=== PATIENT | female | born 1970 | race Caucasian/White ===

== ENCOUNTER 2022-08-02 09:12 | Outpatient (CLI) | payer OTHER, SELFPAY | END 2022-08-02 09:13 | disposition home or self-care (01) | PROVIDERS: PCP Family Medicine; Visit Provider Surgery | DX: Z12.11 Encounter for screening for malignant neoplasm of colon (principal); K63.5 Polyp of colon; K57.30 Diverticulosis of large intestine without perforation or abscess without bleeding; K64.8 Other hemorrhoids; Z86.010 Personal history of colon polyps | CPT/HCPCS: 45385; 88305; 99153; J2250; J2405; J3010 ==

== ENCOUNTER 2023-03-15 08:49 | Outpatient (CLI) | payer BC, SELFPAY | END 2023-03-15 08:50 | disposition home or self-care (01) | PROVIDERS: PCP Family Medicine; Visit Provider Family Medicine | DX: D64.9 Anemia, unspecified (principal); R79.89 Other specified abnormal findings of blood chemistry; E78.1 Pure hyperglyceridemia; R59.1 Generalized enlarged lymph nodes | CPT/HCPCS: 80076; 82728; 83540 ==

== ENCOUNTER 2023-10-27 15:52 | Outpatient (CLI) | payer BC, SELFPAY ==
--- OUTSIDE RECORDS SUMMARY | 2023-10-27 15:57 | XMS_ITS | Encounter Summary ---
Author Organization [facility] Address [address] [address] Care Team Providers Care Clinical Business Analyst Name Role Phone Mellissa Simms MD Primary Care Provider [phone]- [phone] Encounter Details Date Type Department Care Team (Late st Contact Info) Description 01/04/2022 Research Encounter [facility] [address] [place] [address] Maynor Sherman MD [address] [place] [id number] Social History Tobacco Use Types Packs/Day Years Used Date Smoking Tobacco: Never Smokeless Tobacco: Never Alcohol Use Standard Drinks/Week Comments No 0 (1 standard drink = 0.6 oz pur e alcohol) Sex and Gender Information Value Date Recorded Sex Assigned at Not on file Gender Identity Not on file Sexual Orientation Not on file documented as of this encounter Progress Notes * Chase Harrison MD - 01/04/2022 3:36 PM CDT Today patient was electronically consented to the IT R study. Electronic consent form was reviewed and the subject expressed understanding of all information. All questions were answered. Patientelectronically signed the consent form. Patient was allowed to save or print a pdf copy of the completed signed consent form. Chase Harrison 01/04/2022 documented in this encounter Plan of Treatment Upcoming Encounters Date Type Department Care Team (Late st Contact Info) Description 11/18/2023 8:00 AM CDT Telemedicine [facility] [address], [address] [place], [place] [id number] Katelyn Harmon MD [address] [place], [place] [address] documented as of this encounter Visit Diagnoses Not on filedocumented in this encounter Care Teams Clinical Business Analyst Relationship Specialty Start Date End Date Mellissa Simms MD [address] [place] [phone] PCP - General 01/08/14 documented as of this encounter"
--- OUTSIDE RECORDS SUMMARY | 2023-10-27 15:57 | XMS_ITS | Data Portability ---
Author Organization [place] - [facility], [employer] Address [address] [facility] [place] [address] Assessment Encounter Date Assessment Date Assessment LastModified by Organization Details LastModified Time 08/18/2022 08/18/2022 We discussed new orthotics, suggested she bring hers in for modifications. Discussed trial of Subiomed at that time. She is trying to increase her walking and pain is increasing with the activity. We spent 20 minutes of face to face consultation time with the patient today. Discussing treatment. [email or web address] Not available 08/22/2022 11:34:42 08/19/2022 08/19/2022 Patient presents for orthotics check. Discussed instructions and any additional orders with patient. We made adjustments to orthotics and applied some heel lifts b/l. Follow 1 week. We spent 20 minutes of face to face consultation time with the patient today. Discussing treatment. Gait analysis and walk tests today. [email or web address] Not available 08/19/2022 20:58:19 Plan of Treatment Reminders Order Date Submit Date Provider Last Modified By Organization Details Last Modified Time Details Appointments None record ed. Lab None record ed. Referral None record ed. Procedures None record ed. Surgeries None record ed. Imaging None record ed. Medication Orders None record ed. Patient TargetsNo targets recorded. Patient InstructionsNo instructions recorded. Reason for Referral None Reported. Problems Name Status Onset Date Resolution Date Notes Provider Name and Address Organization Details Recorded Time Onychomycosis of toenails Active 2021 Onychomycosis of toenails; Original Code: 8964119316 Scott ginal Codesystem: SNOMED CT Classificat ion: Medical Confir mation Status: Confirmed Not Available [facility] 09:03:19 Acquired hallux valgus Active 2020 Acquired hallux valgus; Original Code: 969969845 Orig inal Codesystem: SNOMED CT Classificat ion: Medical Confir mation Status: Confirmed Not Available [facility] 3 09:03:19 Ganglion of ankle and foot Active 2020 Ganglion of ankle and foot; Original Code: 7149584168 Scott ginal Codesystem: SNOMED CT Classificat ion: Medical Confir mation Status: Confirmed Not Available [facility] 3 09:03:19 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 Medical Equipment None Reported. Medications Name Sig Start Date Stop Date Status Note LastModified by Organization Details LastModified Time topiramate 25 mg tablet TAKE 1 TABLET BY MOUTH TWICE A DAY active Not Available Not Available No t Available phentermine 37.5 mg tablet TAKE 0.5 TABLETS (18.75 MG) BY MOUTH DAILY BEFORE BREAKFAST. active Not Available Not Available N ot Available acetaminophe n 500 mg tablet TAKE 2 TABLETS BY MOUTH EVERY 8 HOURS active Not Available Not Available No t Available oxycodone-ac etaminophen 5 mg-325 mg tablet TAKE 1 TABLET BY MOUTH EVERY 4 HOURS IF NEEDED FOR PAIN. MAX ACETAMINOPH EN DOSE: 4000MG IN 24 HRS. active Not Available Not Available No t Available ferrous sulfate 325 mg (65 mg iron) tablet TAKE 1 TABLET BY MOUTH EVERY DAY active Not Available Not Available No t Available ibuprofen 600 mg tablet TAKE 1 TABLET (600 MG) BY MOUTH EVERY 8 HOURS. active Not Available Not Available No t Available oxycodone 5 mg tablet TAKE 1-2 TABLETS (5-10 MG) BY MOUTH EVERY 4 HOURS NEEDED. active Not Available Not Available No t Available GaviLyte-G 236 gram-22.74 gram-6.74 gram-5.86 gram oral solution 240 ML ORALLY EVERY 10 MINUTES FOLLOW COLONOSCOPY PREP INSTRUCTION S GIVEN IN CLINIC. active Not Available Not Available No t Available Vitals None Recorded Social History None recorded. Functional Status None recorded. Mental Status None recorded. Family History Nothing Reported. Medical History No medical history recorded. Gynecological HistoryNo gynecological history recorded. Obstetrics History GPAL:G 0 P 0 0 0 0 Past Encounters Encounter ID Performer Location Encounter Start Date Encounter Closed Date Diagnosis/Indication Diagnosis SNOMED-CT Code [id number] Joshua Amos DPM [facility] [address] [place] [address] 08/18/2022 16:31:36 08/23/2022 10:37:43 Bilateral acquired hallux limitus of great toes [id number] 02 Onychomycosis [id number] Joshua Amos DPM [facility] [address] [place] [address] 08/19/2022 16:02:44 08/20/2022 12:27:12 Pain in right foot [id number] Pain in left foot 658105 [id number] Pain in ri ght hip joint [id number] Health Concerns Section Related Observation LastModified by Organization Detai ls LastModified Time None Recorded Concern Status LastModified by Organization Details LastModified Time None Recorded Advance Directives Directive None Recorded Payers Encounter Date Sequence Insurance Name Policy Number Policy Nazario Covered Member ID Nazario Member ID Guarantor Name 08/18/2022 1 [employer]) Velia Barton [id number] Velia Barton 08/19/2022 1 [employer]) Velia Barton [id number] Velia Barton Notes Date Note Type Note Provider Name and Address Organization Details Recorded Time 08/18/2022 text/html HPI Notes: Pt. presents without orthotics today for complaint of hip pain right, Problems with great toenails b/l. She has orthotics. Joshua Amos DPM [address] [place], [address], [facility] 08/22/2022 11:34:54 08/19/2022 text/html HPI Notes: This established Pt. presents for orthotic check after initiating orthotic use for heel and arch pain consistent with plantar fascititis and excess pronation. Joshua Amos DPM [address] [place], [address], [facility] 08/19/2022 20:58:26 OBGyn Episode No OBEpisode recorded.
--- OUTSIDE RECORDS SUMMARY | 2023-10-27 15:57 | XMS_ITS | Encounter Summary ---
Author Organization [facility] Address [address] [place] [address] Care Team Providers Care Jumbo Operator Name Role Phone None Reported, Pcp Primary Care Provider Unavail able Encounter Details Date Type Department Care Team (Late st Contact Info) Description 12/14/2016 Historical Ophthalmology [facility] Guido Quezada Jr., M.D. [address] [place] [address] Social History Tobacco Use Types Packs/Day Years Used Date Smoking Tobacco: Never Assessed Sex and Gender Information Value Date Recorded Sex Assigned at Not on file Gender Identity Not on file Sexual Orientation Not on file documented as of this encounter Progress Notes * Guido Quezada M.D. - 12/14/2016 3:27 PM CDT Eye General CHIEF COMPLAINT Eyelid Irritation/ Bump HISTORY OF PRESENT ILLNESS Pt states has eyelid bump on left eye for about 2-3 years. Presents today with irritation and discomfort, states bump is bigger than before. Bothering pt. IMPRESSION / REPORT / PLAN #1 Sebaceous Cyst Removed with 25 g Maxitrol Ointment BID 4 days DIAGNOSIS #1 Sebaceous Cyst CDM Reports - EYEGEN Id: [id number] Status: Fnl documented in this encounter Plan of Treatment Not on file documented as of this encounter Visit Diagnoses Not on filedocumented in this encounter Additional Health Concerns Infection Onset Date Last Indicated Resolved Time COVID19 Pending 12/28/2019 12/28/2019 12/29/2019 5 :17 AM CDT documented as of this encounter Care Teams Jumbo Operator Relationship Specialty Start Date End Date None Reported, Pcp PCP - General Family Medicine 05/22/23 documented as of this encounter
--- OUTSIDE RECORDS SUMMARY | 2023-10-27 15:57 | XMS_ITS | Clinical Summary ---
Author Organization [facility] Address [address] [place] [address] Care Team Providers Care Derrick Operator Name Role Phone None Reported, Pcp Primary Care Provider Unavail able Source Comments Patient records contain information from all sites at [facility]. For routine questions regarding patient records, call [phone] during business hours, M-F 8:00 AM - 5:00 PM Central Time. Record requests for emergency care only can be directed to [phone] at any time.[facility] Allergies No known active allergies Medications Medication Sig Dispensed Refills Start Date End Date Status calcium citrate/vitamin D3 (CALCIUM CITRATE + D ORAL) Take by mouth. Active iron 18 mg tablet Take 25 mg by mouth. 08/08/2013 Active cholecalciferol (VITAMIN D3) 1,000 Unit capsule Take 1 capsule by mouth. Active cyanocobalamin (VITAMIN B12) 1,[address] under the tongue. Active benzonatate (TESSALON) 200 mg capsuleIndications:Co ugh Unspecified Type Take 1 capsule (200 mg total) by mouth 3 (three) times a day as needed for cough. 42 capsule 05/22/2023 Active codeine-guaiFENesin (ROBITUSSIN-AC) 10-100 mg/5 mL liquidIndications:Cou gh Unspecified Type Take 5-10 mL by mouth every 6 (six) hours as needed for cough. 240 mL 05/22/2023 Active Active Problems No known active problems Immunizations Name Administration Dates Next Due Influenza TIV (IM) 01/29/2005 Influenza, Injectable, Mdck, Preservative Free, Quadrivalent 12/16/2020 Tdap 07/26/2007 influenza vaccine quad (FLUZONE/FLUARIX) (6 months and older)(PF) 03/15/2023,12/18/2021,02/05/2020,2018 Social History Tobacco Use Types Packs/Day Years Used Date Smoking Tobacco: Never Smokeless Tobacco: Never Tobacco Cessation:Counseling Given: No Alcohol Use Standard Drinks/Week Comments No 0 (1 standard drink = 0.6 oz pur e alcohol) Nutrition Answer Date Recorded Nutrition: EVOO Fat Source Unknown 06/23 Nutrition: Servings of Fruits/Vegetables per Day Not on file 06/23/2020 Dental Answer Date Recorded Dental: Regular Dentist Unknown 06/25/19 21 Sex and Gender Information Value Date Recorded Sex Assigned at Not on file Gender Identity Not on file Sexual Orientation Not on file Last Filed Vital Signs Vital Sign Reading Time Taken Comments Blood Pressure 102/65 05/22/2023 9:50 AM ELECTROTYPER Pulse 83 05/22/2023 9:50 AM ELECTROTYPER Temperature 36.4 ??C (97.6 ??F) 05/22/2023 9:50 AM CS T Respiratory Rate 16 05/22/2023 9:50 AM ELECTROTYPER Oxygen Saturation 98% 05/22/2023 9:50 AM ELECTROTYPER Inhaled Oxygen Concentration - - Weight 66 kg (145 lb 8.1 oz) 05/22/2023 9:50 AM ELECTROTYPER Height - - Body Mass Index - - Plan of Treatment Health Maintenance Due Date Last Done Comments CT Colonography 1968 Cervical Cancer Screening 1968 Cologuard 1968 FIT 1968 HIV Screening 1968 Hepatitis C Screening 1968 Lipid (Cholesterol) Screening 1968 Hepatitis B Vaccines (1 of 3 - 19+ 3-dose series) 1987 DTaP,Tdap,and Td Vaccines (2 - Td or Tdap) 07/25/2017 07/26/2007 Zoster Vaccines (1 of 2) 2018 COVID-19 Vaccine ( - season) 2022 03/20/2021, 08/19/2020, 07/22/2020 Depression Screening (Annual PHQ-2) 04/18/2023 Mammogram 05/03/2023 05/03/2022, 01/16, 12/10/2019, Additional history exists Influenza Vaccine (#1) 2024 3, 12/18/2021, 12/16/2020, Additional history exists Fasting Glucose for Diabetes Screening 10/08/2024 10/08/2021 Colonoscopy 04/17/2032 04/17/2022 Colorectal Cancer Screening 04/17/2032 Pneumococcal vaccine (0-64 years) Aged Out No longer eligible based on patient's age to complete this topic Procedures Procedure Name Priority Date/Time Associated Diagnosis Comments BI BREAST SCREENING BILATERAL WITH TOMOSYNTHESIS RAD - Routine (most inpatients and all outpatients) 05/03/2022 12:33 PM ELECTROTYPER EXTI BASIC METABOLIC PANEL, S/P Routine 10/08/2021 4:03 PM CDT from Last 3 Months or Most Recently Relevant to Health Maintenance Care Teams Derrick Operator Relationship Specialty Start Date End Date None Reported, Pcp PCP - General Family Medicine 05/22/23
--- OUTSIDE RECORDS SUMMARY | 2023-10-27 15:57 | XMS_ITS | Clinical Summary ---
Author Organization [facility] Address [address] [place] [address] Care Team Providers Care Biochemical Engineer Name Role Phone Mellissa Simms MD Primary Care Provider [phone]- [phone] Source Comments You are receiving this document as you are listed as the primary care provider,follow-up provider, or the patient has been referred to you for consultation.This is in compliance with the Medicare and[facility] EHR Incentive Program,which states Providers who transition their patient to another setting of careor provider of care or refers their patient to another provider of care shouldprovide summary care record for each transition of care or referral. [facility] No known active allergies Medications Medication Sig Dispensed Refills Start Date End Date Status Multiple Vitamins-Minerals (MULTIVITAMIN ADULT OR) Take 1 tablet by mouth daily (every 24 hours). 06/21/2012 Active Cyanocobalamin (VITAMIN B-12) [address] 1,000 mcg under tongue every 14 days. 04/08/2020 Active cholecalciferol (VITAMIND3) 25 MCG (1000 UT) capsule Take 1 Capsule (1,000 Units) by mouth. Active ferrous sulfate 325 (65 Fe) MG tablet Take 1 Tablet (325 mg) by mouth daily. Active Phentermine HCl (ADIPEX-P) 37.5 MG tablet Take 0.5 Tablets (18.75 mg) by mouth daily before breakfast. 15 Tablet 5 07/07/2023 Active topiramate (TOPAMAX) 25 MG tablet Take 1 Tablet (25 mg) by mouth two times a day. 180 Tablet 1 07/07/2023 Active Active Problems Problem Noted Date Diagnosed Date Complete tear of left rotator cuff 12/09/2021 Overview: Added automatically from request for surgery [id number] Primary osteoarthritis of both knees 02/11/2020 Overview: left severe lateral and right mild to moderate lateral; mild to moderate left patellofemoral and minimal right patellofemoral Bariatric surgery status 11/01/2014 Pure hyperglyceridemia Resolved Problems Problem Noted Date Diagnosed Date Resolved Date Elevated fasting glucose 11/01/2014 Immunizations Name Administration Dates Next Due Moderna Monovalent 12+ 08/19/2020,07/22/2020 Moderna Monovalent Booster 12+ 03/20/2021 TDAP (BOOSTRIX) 07/26/2007 Family History Medical History Relation Name Comments Diabetes Father type 2 High Cholesterol Father Hypertension Father Heart Disease Maternal Grandfather Dementia Maternal Grandmother Osteoporosis Maternal Grandmother Heart Disease Paternal Grandfather Cancer, Colon Paternal Grandmother Thyroid Disorder Sister 2 hypothyroid Thyroid Disorder Sister 3 hyperthyroi d Cancer, Breast Negative Family History Cancer, Ovary Negative Family History Relation Name Status Comments Father Alive Mother Alive Maternal Grandfather Maternal Grandmother Paternal Grandfather Paternal Grandmother Sister 1 Alive Sister 2 Sister 3 Social History Tobacco Use Types Packs/Day Years Used Date Smoking Tobacco: Never Passive Smoke Exposure: Never Smokeless Tobacco: Never Tobacco Cessation:Counseling Given: Not Answered Alcohol Use Standard Drinks/Week Comments No 0 (1 standard drink = 0.6 oz pur e alcohol) Sex and Gender Information Value Date Recorded Sex Assigned at Not on file Gender Identity Not on file Sexual Orientation Not on file Last Filed Vital Signs Vital Sign Reading Time Taken Comments Blood Pressure 95/65 07/07/2023 8:33 AM CDT Pulse 72 07/07/2023 8:33 AM CDT Temperature 36.6 ??C (97.8 ??F) 03/01/2023 2:32 PM CS T Respiratory Rate 20 03/01/2023 2:32 PM SHED HAND Oxygen Saturation 100% 03/01/2023 2:32 PM SHED HAND Inhaled Oxygen Concentration - - Weight 65 kg (143 lb 3.2 oz) 07/07/2023 8:33 AM CDT Height 160 cm (5' 3) 07/07/2023 8:33 AM CDT Body Mass Index 25.37 07/07/2023 8:33 AM CDT Plan of Treatment Upcoming Encounters Date Type Department Care Team (Late st Contact Info) Description 11/18/2023 8:00 AM CDT Telemedicine [facility] [address], [address] [place] [address] Katelyn Harmon MD [address] [place] [address] Health Maintenance Due Date Last Done Comments Colon Cancer Screening Plan Due 1968 Hep C Screening (Preventive Services) 1968 HIV Screening (Preventive Services) 1984 Adult Preventive Visit 1986 HepB (1) 1987 Cervical Cancer Screening Due 07/19/2013 07/18/2013 DTaP/Tdap/Td (2 - Tdap) 07/25/2017 07/26/2007 Zoster/Shingles (1 of 2) 2018 Cholesterol 09/26/2019 09/25/2014, 11/2013, 01/16/1999 Prediabetes: HGBA1C 03/27/2020 03/27/2019, 06/06/2015, 09/25/2014, Additional history exists COVID-19 Vaccine ( season) 2022 03/20/2021, 08/19/2020, 07/22/2020 Mammogram 05/03/2023 05/03/2022, 01/16, 02/02/2021, Additional history exists Influenza (#1) 2023 03/15/2023, 05/2021, 12/16/2020, Additional history exists HepA Aged Out No longer eligi ble based on patient's age to complete this topic Hib Aged Out No longer eligi ble based on patient's age to complete this topic IPV (Polio) Aged Out No longer eligi ble based on patient's age to complete this topic MCV4 Aged Out No longer eligi ble based on patient's age to complete this topic Pneumococcal Aged Out No longer eligi ble based on patient's age to complete this topic Medical Devices Implanted Type Area Programmer Analyst Health It Device Identifier Shelf Expiration Date Model / Serial / Lot Sut [employer]ton Corkscrew Ft 5.5mm - [id number] Implanted:Qty: 3 on 02/02/2022 by Maynor Sherman MD at [facility] Left: SHOULDER [employer] 06/16/2023 [id number] / 0 / [id number] Frankton Swivel Lk 5.5x19.1 - [id number] Implanted:Qty: 1 on 02/02/2022 by Maynor Sherman MD at [facility] Left: SHOULDER [employer] 07/16/2025 AR-[id number] / 0 / [id number] [employer] Swivel Lk 5.5x19.1 - [id number] Implanted:Qty: 1 on 02/02/2022 by Maynor Shemran MD at [facility] Left: SHOULDER [employer] 06/15/2025 AR-[id number] / 0 / [id number] Procedures Procedure Name Priority Date/Time Associated Diagnosis Comments MM MAMMOGRAM SCREENING BILAT W 3D YEMI W CAD Routine 05/03/2022 12:33 PM SHED HAND HGB A1C Routine 03/27/2019 10:27 AM SHED HAND Prediabetes LIPID PANEL & DIRECT LDL (IF NEEDED) Routine 09/25/2014 9:40 AM CDT Hypertriglyceridemi a ANATOMICAL PATH LIQUID BASED Routine 07/18/2013 11:12 AM CDT from Last 3 Months or Most Recently Relevant to Health Maintenance Results * (ABNORMAL) Hemoglobin A1C Glycosylated (03/27/2019 10:27 AM SHED HAND) Hemoglobin A1C 5.8(H) <=5.6 % 03/27/2019 2:42 PM SHED [facility] Blood Venipuncture / Unknown 03/27/2019 10:27 AM SHED HAND 03/27/2019 10:40 AM [facility]ED [facility] Narrative [facility] - 03/27/2019 2:42 PM SHED HAND For patients not previously diagnosed with diabetes: 5.7-6.4%: Increased risk for diabetes 6.5% and greater: Diagnostic for diabetes For patients diagnosed with diabetes: <8.0%: Goal of therapy for ages 18-75 Clinicians may recommend a higher or lower goal for specific individuals. Dominic Medina MD LAB_1 Performing Organization Address [facility] de Phone Number [address] * (ABNORMAL) Lipid Panel and Direct LDL(If Needed) (09/25/2014 9:40 AM CDT) Pathologist [facility] Cholesterol 160 0 - 200 mg/dL HP CONVERSION Triglycerides 241(H) 0 - 149 mg/dL HP CONVERSION HDL Cholesterol 42 >39 mg/dL HP CONVERSION Cholesterol/HDL Ratio Screen 3.8 HP CONVERSION LDL Calculated 70 19 - 130 mg/dL HP CONVERSION Hours Fasting 12.0 HP CONVERSION 09/25/2014 9:40 AM CDT 09/25/2014 9:45 AM CDT Narrative HP CONVERSION - 09/25/2014 10:29 [place] [address] Rachel Arizmendi APRN, CNP LAB_1 Performing Organization Address [facility] de Phone Number HP CONVERSION * Pap Smear (07/18/2013 11:12 AM CDT) 07/18/2013 11:1 2 AM CDT Narrative HP CONVERSION - 07/27/2013 9:36 AM CDT FINAL GYNECOLOGICAL CYTOLOGY REPORT Pathology #: [id number] ?Date Obtained: 07/18/2013 ? Date Received: 07/19/2013 INTERPRETATION/RESULTS: Negative for Intraepithelial Lesion or Malignancy. SPECIMEN ADEQUACY: Satisfactory for Evaluation. ??Endocervical cells/transformation zone component present. Verified on 07/27/2013 ??by JUSTINE SMITH(ASCP) (electronic signature) CLINICAL NOTES: ?Abnormal bleeding: No, LMP: [id number], Hormonal TX: No LIQUID BASED PAP SMEAR SPECIMEN TYPE: ?CERVICAL & HPV REGARDLESS OF PAP RESULT PLEASE NOTE: The pap smear is a screening test designed to aid in the detection of cervical cancer and its precursor lesions. It is not a diagnostic procedure and should not be used as the sole means of detecting cervical cancer. Both false-positive and false-negative reports may occur. ? End of Report Arianne Ibanez APRN, FINANCIAL REPORTING DIRECTOR LAB_1 HP CONVERSION from Last 3 Months or Most Recently Relevant to Health Maintenance Care Teams Biochemical Engineer Relationship Specialty Start Date End Date Mellissa Simms MD [address] [place] [phone] PCP - General 01/08/14
--- OUTSIDE RECORDS SUMMARY | 2023-10-27 15:57 | XMS_ITS ---
Author Organization [facility] Address [address] [place] [address] Care Team Providers Care Sail Lay Out Worker Name Role Phone Unavailable Unavailable Unavailable Surgery Details Not on file Complications Check Surgery Details section. Procedure Estimated Blood Loss Check Surgery Details section. Procedure Findings Check Surgery Details section. Procedure Specimens Taken Check Surgery Details section.
--- OUTSIDE RECORDS SUMMARY | 2023-10-27 15:57 | XMS_ITS | Clinical Summary ---
Author Organization [facility] [facility] [facility] Address [place], [place] [address] Care Team Providers Care Diesel Engine Erector Name Role Phone Tomer Katz MD Primary Care Provider [phone] Allergies No known active allergies Medications Medication Sig Dispensed Refills Start Date End Date Status MULTIVITAMIN TAB Take 2 Tablets by mouth once daily. Contains 0.4 mg of Folic Acid. 0 Active CALCIUM CITRATE + D ORAL Take 1 Tablet by mouth 3 times daily. 0 Active CYANOCOBALAMIN 1,000 MCG SUBLINGUAL TAB 1 daily 0 Active cholecalciferol (VITAMIN D) 1,000 unit capsule Take 1 capsule by mouth once daily. Active B.ani-L.aci-L.chucky- L.plan-L.Chaz (PROBIOTIC FORMULA) 10 billion cell (2 billion ea) Cap Take 1 Tab by mouth once daily. 06/16/2010 Active oxyCODONE-acetamin ophen (PERCOCET) 5-325 mg per tabletIndications: AC separation, left, initial encounter,Anterior subluxation of left humerus, initial encounter Take 1 Tablet by mouth every 4 hours if needed for Pain. Max acetaminophen dose: 4000mg in 24 hrs. 10 Tablet 10/08/2021 Active Active Problems Problem Noted Date Diagnosed Date Unspecified vitamin D deficiency 06/16/2010 [place] (iron deficiency anemia) 06/16/2010 Other and unspecified postsurgical nonabsorption 04/30/2008 Bariatric surgery status 06/22/2006 Overview: s/p gastric bypass for treatment of morbid obesity, 02/2000 Resolved Problems Problem Noted Date Diagnosed Date Resolved Date S/P gastric bypass 06/16/2010 3 Encounters Date Type Department Care Team Description 10/24/2023 Telephone [facility] [address] [place] [phone] Tomer Katz MD 08/22/2023 Telephone [facility] [address] [place] [address] Jazlyn Campbell, [facility] 08/05/2023 Telephone [facility] [address] [place] [address] Jazlyn Campbell, [facility] Surgery Scheduled 07/28/2023 2:15 PM CDT Office Visit [facility] [address] [place] [phone] Jim Galvin MD Consult 07/28/2023 Travel from Last 3 Months Immunizations Name Administration Dates Next Due Influenza, IIV3 (Age >=3 years) 01/29/2005 Tdap 07/26/2007 Family History Medical History Relation Name Comments Diabetes Father Hyperlipidemia Father Hypertension Father Good Health Mother Heart Disease Paternal Grandfather Cancer-colon Paternal Grandmother Thyroid Disease Sister 3 hyperthryoid Thyroid Disease Sister 4 hypothyroid, genevieve's Cancer-breast No Family History Cancer-ovarian No Family History Cancer-prostate No Family History Relation Name Status Comments Brother 1 Alive Brother 2 Alive Father Alive Maternal Grandfather Maternal Grandmother Mother Alive Paternal Grandfather Paternal Grandmother Sister 1 Alive Sister 2 Alive Sister 3 Sister 4 Social History Tobacco Use Types Packs/Day Years Used Date Smoking Tobacco: Never Smokeless Tobacco: Never Alcohol Use Standard Drinks/Week Comments No 0 (1 standard drink = 0.6 oz pur e alcohol) Sex and Gender Information Value Date Recorded Sex Assigned at Not on file Gender Identity Not on file Sexual Orientation Not on file Obstetrics History Last Filed Vital Signs Vital Sign Reading Time Taken Comments Blood Pressure 107/53 07/28/2023 2:24 PM CDT Pulse 99 07/28/2023 2:24 PM CDT Temperature 36.4 ??C (97.6 ??F) 10/08/2021 3:52 PM CD T Respiratory Rate 17 07/28/2023 2:24 PM CDT Oxygen Saturation 98% 10/08/2021 3:52 PM CDT Inhaled Oxygen Concentration - - Weight 62.1 kg (137 lb) 07/28/2023 2:24 PM CDT Height 160 cm (5' 3) 07/28/2023 2:24 PM CDT Body Mass Index 24.27 07/28/2023 2:24 PM CDT Plan of Treatment Upcoming Encounters Date Type Department Care Team (Latest Contact Info) Description 11/07/2023 7:30 AM CDT Appointment [facility] [address] [place] [address] 11/07/2023 8:00 AM CDT Appointment [facility] [address] [place] [address] 11/07/2023 9:50 AM CDT Hospital Encounter [address] [address] Jim Galvin MD [address] [place] [address] 11/07/2023 9:50 AM CDT - 11/07/2023 11:16 AM CDT Surgery [address] [address] Jim Galvin MD [address] [address] Left breast magnetic seed-localized excisional biopsy 11/07/2023 11:00 AM CDT Appointment [facility] [address] [place] [address] 11/24/2023 9:30 AM CDT Office Visit [facility] [address] [place] [phone] Jim Galvin MD [address] [id number] Scheduled Procedures Name Priority Associated Diagnoses Date/Ti me BIOPSY BREAST WITH MAGNETIC SEED LOCALIZATION Atypical ductal hyperplasia of left breast 11/07/2023 9:50 AM CDT Health Maintenance Due Date Last Done Comments Depression screening for age 12+ 1980 HIV for age 15-65 1983 Hepatitis C screening for age 18-79 1986 Pap test for age 21-65 09/12/2012 0, 07/29/2008, 07/26/2007, Additional history exists Colonoscopy through age 75 2013 Lipids for age 45-75 2013 08/28/2007, 12/07/2002, 12/07/2002 Tetanus booster 07/25/2017 07/26/2007 Zoster (shingles) series for age 50+ (1 of 2) 2018 COVID-19 vaccine series (2022- season) 2022 03/20/2021, 08/19/2020, 07/22/2020 Influenza for age 50-64 12/18/2023 01/29/2005 Mammogram for age 45-75 07/21/2024 07/22/19 24, 07/14/2023, 05/03/2022, Additional history exists BMI (ht and wt on same day) for age 18+ 07/27/2024 07/28/2023 Tdap Completed 07/26/2007 Pneumococcal series for age 6-64 Aged Out No longer eligible based on patient's age to complete this topic Procedures Procedure Name Priority Date/Time Associated Diagnosis Comments XR MAMMO UNI ADDL VIEWS LEFT LEVAR 07/22/2023 8:15 AM CDT Abnormal mammogram 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 The results given to the patient. Left breast stereotactic core biopsy is recommended. For convenience, same day biopsy was offered, which the patient would like to proceed with. PATIENTS: You will also receive a letter with your examination results in an easy to read format. If you have questions about your results, please contact your referring provider. Narrative 07/22/2023 10:22 AM CDT For Patients: As a result of the Cures Act, medical imaging exams and procedure reports are released immediately into your electronic medical record. You may view this report before your referring provider. If you have questions, please contact your health care provider. EXAM: XR MAMMO UNI ADDL VIEWS LEFT LOCATION: [facility] DATE: 07/22/2023 INDICATION: Abnormal Mammogram. COMPARISON: Mammogram 07/14/2023, 05/03/2022, 02/02/2021. MAMMOGRAPHIC FINDINGS: Left full-field digital diagnostic mammogram performed. There are scattered areas of fibroglandular density. The grouped amorphous calcifications in the left breast at the 12:00 position, anterior depth are indeterminate on the additional views. The calcifications measure 1 x 0.6 x 0.7 cm. Postsurgical change breast reduction. Procedure Note Mireya Kuo MD - 07/22/2023 For Patients: As a result of the s Act, medical imagingexams and procedure reports are released immediately into your electronicmedical record. You may view this report before your referring provider.If you have questions, please contact your health care provider. EXAM: XR MAMMO UNI ADDL VIEWS LEFT LOCATION: [facility] DATE: 07/22/2023 INDICATION: Abnormal Mammogram. COMPARISON: Mammogram 07/14/2023, 05/03/2022, 02/02/2021. MAMMOGRAPHIC FINDINGS: Left full-field digital diagnostic mammogramperformed. There are scattered areas of fibroglandular density. Thegrouped amorphous calcifications in the left breast at the 12:00 position,anterior depth are indeterminate on the additional views. Thecalcifications measure 1 x 0.6 x 0.7 cm. Postsurgical change breastreduction. IMPRESSION: ACR BI-RADS Category 4: Suspicious. The results given to the patient. Left breast stereotactic core biopsy isrecommended. For convenience, same day biopsy was offered, which thepatient would like to proceed with. PATIENTS: You will also receive a letter with your examination results inan easy to read format. If you have questions about your results, pleasecontact your referring provider. Tomer Katz MD MAMMO * YOUTH CARE WORKER THIN PREP PAP SCREEN IMAGED (09/12/2009 3:51 PM CDT) CYTOLOGY CYTOPATHOLOGY REPORT [facility] Status: Final Status ?[id number] CLINICAL INFORMATION Last Date of LMP ? :09/01/2009 Last Pap Date ?:07/29/2008 Last Pap Result ?:NIL ABN Firth/Bx Past 5 YRS :None Hormone Usage ?:None Menstrual Status ? :Regular Periods Firth/Bx done today ? :No Additional Information :None given HPV Request ?:HPV if ASCUS SPECIMEN SOURCE ?:Cervical/vagina l ThinPrep Vial, screening SPECIMEN ADEQUACY ?:Satisfactory for evaluation Endocervical component ? present. INTERPRETATION/RES ULT Negative for intraepithelial lesion or malignancy (NIL) Cytology 1st Screener ??:tll Signed by ?:tll This specimen was screened by the FDA approved ThinPrep Imaging System and manually reviewed. NOTE: ??The Pap test is a screening technique, not a diagnostic procedure. ??It is used ??primarily to screen for squamous cancers and precursor lesions. ??Published studies have shown that it is subject to both false negative and false positive results. ??The pap test should not be used as the sole means to diagnose or exclude pre-malignant and malignant lesions. COLLECTED:09/12/09 ? ACCESSIONED: ??09/14/09 ?? SIGNED: ??09/19/09 [facility] PAP [place] CODE NIL [facility] Cervical/Vaginal (Cervical/Vagina l) 09/12/2009 3:51 PM CDT 09/12/2009 3:47 PM CDT Lisa Sood MD PATHOLOGY/ CYTOLOGY [facility] INTERNAL ZIP [phone] [address] * LIPID PANEL (08/28/2007 9:26 AM CDT) CHOLESTEROL,TOTAL 178 110 - 199 mg/dL [facility] TRIGLYCERIDES 141 40 - 149 mg/dL [facility] HDL CHOLESTEROL 47 >40 mg/dL [facility] CHOL/HDL RATIO 3.79 <4.51 [facility] LDL CHOLESTEROL 103 <131 mg/dL [facility] PATIENT STATUS Fasting [facility] Blood specimen (specimen) BLOOD SPECIMEN / Unknown 08/28/2007 9:26 AM CDT 08/28/2007 9:25 AM CDT Lisa Sood MD CHEMISTRY Performing Organization Address City/[facility]/ZIP Co de Phone Number [facility] INTERNAL ZIP [phone] [address] from Last 3 Months or Most Recently Relevant to Health Maintenance Care Teams Diesel Engine Erector Relationship Specialty Start Date End Date Tomer Katz MD [address] [place] [address] PCP - General Family Practice 11/28/19
--- OUTSIDE RECORDS SUMMARY | 2023-10-27 15:57 | XMS_ITS | Referral Summary ---
Author Organization [facility] Address [address] [place] [address] Care Team Providers Care Web Search Evaluator Name Role Phone None Reported, Pcp Primary Care Provider Unavail able Source Comments Patient records contain information from all sites at [facility]. For routine questions regarding patient records, call [phone] during business hours, M-F 8:00 AM - 5:00 PM Central Time. Record requests for emergency care only can be directed to [phone] at any time.[facility] Allergies No known active allergies Medications [...] Comments Blood Pressure 102/65 05/22/2023 9:50 AM MASTICATOR Pulse 83 05/22/2023 9:50 AM MASTICATOR Temperature 36.4 ??C (97.6 ??F) 05/22/2023 9:50 AM CS T Respiratory Rate 16 05/22/2023 9:50 AM MASTICATOR Oxygen Saturation 98% 05/22/2023 9:50 AM MASTICATOR Inhaled Oxygen Concentration - - Weight 66 kg (145 lb 8.1 oz) 05/22/2023 9:50 AM MASTICATOR Height - - Body Mass Index - - Plan of Treatment Not on file Procedures Procedure Name Priority Date/Time Associated Diagnosis Comments BI BREAST SCREENING BILATERAL WITH TOMOSYNTHESIS RAD - Routine (most inpatients and all outpatients) 05/03/2022 12:33 PM MASTICATOR EXTI BASIC METABOLIC PANEL, S/P Routine 10/08/2021 4:03 PM CDT from Last 3 Months or Most Recently Relevant to Health Maintenance Care Teams Web Search Evaluator Relationship Specialty Start Date End Date None Reported, Pcp PCP - General Family Medicine 05/22/23
--- OUTSIDE RECORDS SUMMARY | 2023-10-27 15:57 | XMS_ITS | Encounter Summary ---
Author Organization [facility] Address [address] [place] [address] Care Team Providers Care Cycle Manager Name Role Phone Mellissa Simms MD Primary Care Provider [phone] Encounter Details Date Type Department Care Team (Late Contact Info) Description 07/06/2023 E-Visit [facility] [address] [place], [place] [address] [place] [address] Social History Tobacco Use Types Packs/Day Years Used Date Smoking Tobacco: Never Passive Smoke Exposure: Never Smokeless Tobacco: Never Alcohol Use Standard Drinks/Week Comments No 0 (1 standard drink = 0.6 oz pur e alcohol) Sex and Gender Information Value Date Recorded Sex Assigned at Not on file Gender Identity Not on file Sexual Orientation Not on file documented as of this encounter Plan of Treatment Upcoming Encounters Date Type Department Care Team (Late st Contact Info) Description 11/18/2023 8:00 AM CDT Telemedicine [facility] [place] [address] [place], [place] [phone] Katelyn Harmon MD [address] [place], [place] [id number] documented as of this encounter Visit Diagnoses Not on filedocumented in this encounter Care Teams Cycle Manager Relationship Specialty Start Date End Date Mellissa Simms MD [address] [place] [phone] PCP - General 01/08/14 documented as of this encounter
== END 2023-10-27 15:53 | disposition home or self-care (01) ==
PROVIDERS: PCP Family Medicine; Visit Provider Family Medicine
DX: Z01.818 Encounter for other preprocedural examination (principal); D64.9 Anemia, unspecified; R79.89 Other specified abnormal findings of blood chemistry; E78.1 Pure hyperglyceridemia
CPT/HCPCS: 80048; 82607; 82728; 83540; 83550

== ENCOUNTER 2025-01-15 09:10 | Outpatient (CLI) | payer BC, SELFPAY | END 2025-01-15 09:11 | disposition home or self-care (01) | PROVIDERS: PCP Family Medicine; Visit Provider Physician Assistant | DX: R25.2 Cramp and spasm (principal); Z13.9 Encounter for screening, unspecified | CPT/HCPCS: 80053; 80061; 83735; 84443 ==